=== PATIENT | female | born 1975 | race Caucasian/White ===

== ENCOUNTER 2018-05-05 18:35 | Emergency (ER) | payer OTHER, SELFPAY ==
[2018-05-05 18:41] VITALS: BP 136/92; PULSE 71; RESP 16; TEMP 36.6; O2SAT 100; BMI 24.3
--- NOTE | 2018-05-05 18:50 | DI.RAD.S_ITS ---
PROCEDURE: XR ANKLE LT MIN 3V INDICATIONS: swelling in ankle with pain TECHNIQUE: 3 views of the ankle were acquired. COMPARISON: None. FINDINGS: Bones: No fractures or dislocations. Ankle mortise is normally aligned. No suspicious bony lesions. Soft tissues: Large tibiotalar joint effusion noted. Achilles tendon appears normal. Soft tissue swelling is noted and ligamentous injury cannot be excluded. IMPRESSION: No fracture. No osseous lesion. If there are persistent symptoms or clinical suspicion for pathology, then repeat radiographs or advanced imaging (CT, MRI or bone scan) should be considered for further evaluation. Dictated by: Alisia Lopez MD, PhD on 05/05/2018 at 19:07 Approved by: Alisia Lopez MD, PhD on 05/05/2018 at 19:08
--- NOTE | 2018-05-05 19:19 | ED.LOWEXIN ---
HPI - Extremity Injury (Lower) <Natalie Milian PA-C - Last Filed: 05/05/18 21:14> General Chief Complaint: Extremity Injury, Lower Stated Complaint: LT ANKLE INJURY Time Seen by Provider: 05/05/18 18:51 Source: patient Limitations: no limitations History of Present Illness HPI Narrative: This 42-year-old female was carrying a box down stairs when she missed the last step and tripped, inverting her left ankle. She states that she felt a snapping or cracking sensation and this has been painful since. She states after a little bit, she was able to get up and hobble on this for about 15 min, then unable to bear weight as it started swelling. She states this hurts all around the ankle, more on the outside. She denies any head contusion, LOC, or any other injury such as pain in her knee or foot. She denies any possibility of . Review of Systems <Natalie Milian PA-C - Last Filed: 05/05/18 21:14> Review of Systems All systems reviewed & are unremarkable except as noted in HPI and below PFSH <Natalie Milian PA-C - Last Filed: 05/05/18 21:14> Comment: no street drugs, occasional ETOH Exam <Natalie Milian PA-C - Last Filed: 05/05/18 21:14> Narrative Exam Narrative: GENERAL APPEARANCE: Patient sitting comfortably, in no distress. LUNGS: Clear to auscultation bilaterally. HEART: Rate and rhythm regular without murmur, normal S1 and S2, no S3 or S4. MUSCULOSKELETAL: Left ankle there is moderate effusion. She is tender to palpation throughout the anterior, lateral and medial ankle. Achilles is intact by palpation, no posterior tenderness. No tenderness over the metatarsals or toes. No tenderness over the lower leg or knee. Normal range of motion of the left knee, strength 5/5 dorsi-and plantarflexion of the toes. Reduced AROM/PROM of the L. ankle throughout secondary to tenderness NEUROVASCULAR: L. foot is warm and pink with intact pulses, sensation grossly intact Initial Vital Signs Initial Vital Signs: Vital Signs Temperature 97.9 F 05/05/18 18:41 Pulse Rate 71 05/05/18 18:41 Respiratory Rate 16 05/05/18 18:41 Blood Pressure 136/92 H 05/05/18 18:41 Pulse Oximetry 100 05/05/18 18:41 <DO Kirill Bower Last Filed: 05/05/18 23:15> Initial Vital Signs Initial Vital Signs: Vital Signs Temperature 97.9 F 05/05/18 18:41 Pulse Rate 71 12 18:41 Respiratory Rate 16 05/05/18 18:41 Blood Pressure 136/92 H 05/05/18 18:41 Pulse Oximetry 100 05/05/18 18:41 Course <Natalie Milian PA-C - Last Filed: 05/05/18 21:14> Additional Information: due to degree of tenderness, difficult to assess strength and laxity. No acute findings on x-ray. Advised immobilization in walking boot or crutches, and have this reassessed with PCP next week to determine whether improving or further imaging needed. Patient is agreeable Orders Ordered: ED Orders 05/05/18 18:50 XR ankle LT min 3V Stat Discontinued Medications Ibuprofen (Advil) 800 mg PO NOW ONE Stop: 05/05/18 19:33 Last Admin: 05/05/18 19:35 Dose: 800 mg Vital Signs - 8 hr 05/05/18 18:41 Temperature 97.9 F Pulse Rate 71 Respiratory Rate 16 Blood Pressure 136/92 H Pulse Oximetry 100 <DO Kirill Bower Last Filed: 05/05/18 23:15> Orders Ordered: ED Orders 05/05/18 18:50 XR ankle LT min 3V Stat Discontinued Medications Ibuprofen (Advil) 800 mg PO NOW ONE Stop: 05/05/18 19:33 Last Admin: 05/05/18 19:35 Dose: 800 mg Vital Signs - 8 hr 05/05/18 18:41 Temperature 97.9 F Pulse Rate 71 Respiratory Rate 16 Blood Pressure 136/92 H Pulse Oximetry 100 MDM - Extremity Injury (Lower) <DARYL Phoenix Last Filed: 05/05/18 21:14> Imaging Data ankle: Radiologist's impression: [address] [address] XRay Report Signed Patient: TOMMIE MILTON [facility]#: [id number] : 1975Acct:[id number] Age/Sex: 42 / FDate of Service: 05/05/18 Loc: ED Accession Number: [id number] Procedure: XR ankle LT min 3V Ordering Provider: Vin Obregon D.O. PROCEDURE: XR ANKLE LT MIN 3V INDICATIONS: swelling in ankle with pain TECHNIQUE: 3 views of the ankle were acquired. COMPARISON: None. FINDINGS: Bones: No fractures or dislocations. Ankle mortise is normally aligned. No suspicious bony lesions. Soft tissues: Large tibiotalar joint effusion noted. Achilles tendon appears normal. Soft tissue swelling is noted and ligamentous injury cannot be excluded. IMPRESSION: No fracture. No osseous lesion. If there are persistent symptoms or clinical suspicion for pathology, then repeat radiographs or advanced imaging (CT, MRI or bone scan) should be considered for further evaluation. Dictated by: Alisia Lopez MD, PhD on 05/05/2018 at 19:07 Approved by: Alisia Lopez MD, PhD on 05/05/2018 at 19:08 Discharge Plan Departure Patient Disposition: Home Clinical Impression: Ankle sprain and strain Discharge Date/Time: 05/05/18 20:42 Interventions: ED Discharge Assessment Last Done: 05/05/18 20:41 Instructions: DI for Ankle Sprain Activity Restrictions/Additional Instructions: there does not appear to be a break or fracture on your x-ray tonight, and it is difficult to assess the degree of your sprained ligaments due to the degree of pain and swelling, which is not unusual. I would like you to use the walking boot (if you find this uncomfortable you can also use an Ramez wrap and crutches ), but please avoid putting weight on your ankle for now. Please call your PCP tomorrow and let them know you were in the emergency room today so that you can set up a follow-up in a few days to assess your progress after the acute swelling and pain are better. You may need repeat x-ray or further testing or imaging if not improving. Please continue ibuprofen 600-800 mg every 8 hr, and you can also add Tylenol as needed to help with pain and swelling. Please keep your ankle elevated and continue to use ice tonight to help with pain and swelling as well. Please return if you have any acutely worsening symptoms prior to your follow-up Referrals: Kedar Castro [Non-Staff] - <Vin Obregon DO - Last Filed: 05/05/18 23:15> Cosign ED Attending Paature Attestation: I was available for consultation during this patient's emergency department encounter
[2018-05-05] MEDS: IBUPROFEN 400 MG TABLET 800 MG PO (19:35)
== END 2018-05-05 20:42 | disposition home or self-care (01) ==
PROVIDERS: Emergency Provider Internal Medicine
DX: S93.402A Sprain of unspecified ligament of left ankle, initial encounter (principal); S96.912A Strain of unspecified muscle and tendon at ankle and foot level, left foot, initial encounter; W10.8XXA Fall (on) (from) other stairs and steps, initial encounter
CPT/HCPCS: 73610; 99282; 99283

== ENCOUNTER → 2021-06-20 11:52 | Outpatient (CLI) | payer BC, SELFPAY ==
--- NOTE | 2021-06-20 | DI.MRI.S_ITS ---
PROCEDURE: MR LUMBAR SPINE WO CON INDICATIONS: Low back pain, unspecified TECHNIQUE: Noncontrast sagittal T1 spin echo and T2 fast echo, sagittal STIR, axial T1 and T2 fast spin echo through the lumbar spine. In cases with scoliosis, additional coronal T2 fast spin echo may be performed. COMPARISON: [facility] [place], CR, XR LUMBAR SPINE 2 OR 3 VIEWS, 06/10/2021, 13:14. FINDINGS: Image quality: Excellent. Alignment and Curvature: Degenerative retrolisthesis of L2 on L3 measures 7 mm. The other vertebral bodies are normally aligned Bone Marrow: Marrow . s of normal overall signal. Discogenic signal abnormality at L2-L3. No acute vertebral body compression fractures. Spinal Cord: Conus medullaris terminates at the L1 level. Visualized cord demonstrates normal signal and size. Paraspinous Soft Tissues: No paravertebral masses. T11-T12: Imaged in sagittal plane only. Incidental note is made of a central posterior disc protrusion which indents on the cord. It likely does not resulting canal stenosis. No foraminal stenosis. T12-L1: Minimal disc bulge. No canal stenosis or foraminal stenosis. L1-L2: Mild disc bulge. No canal stenosis or foraminal stenosis. L2-L3: There is 7 mm retrolisthesis of L2 on L3 with associated disc bulge. Canal stenosis is underestimated by choice of axial scan plane. It is likely [id number]. There is a diffuse broad-based left posterior lateral disc protrusion which contributes to severe left foraminal stenosis and left L2 nerve root impingement in the foramen. L3-L4: Disc bulge. Facet hypertrophy. Mild canal stenosis. [id number] bilateral foraminal stenosis. L4-L5: Posterior annulus tear. Moderately large diffuse disc bulge. Facet and ligament hypertrophy. Moderate to severe canal stenosis. Moderate right foraminal narrowing with flattening deformity on the exiting right L4 nerve root. Mild to moderate left foraminal narrowing. L5-S1: Posterior annulus tear plus disc bulge. Facet and ligament hypertrophy. Moderate to severe canal stenosis. Moderate bilateral foraminal stenosis with mild flattening deformity on the exiting bilateral L5 nerve roots. IMPRESSION: 1. Diffuse degenerative change. 2. Canal stenosis is mild to moderate at L2-L3, mild at L3-L4, moderate to severe at L4-L5, and moderate to severe at L5-S1. 3. At L2-L3, there is a diffuse broad-based left posterior lateral disc protrusion contributing to severe left foraminal stenosis and left L2 nerve root impingement. 4. Multilevel foraminal narrowing as described above. Dictated by: Rene Richardson M.D. on 06/20/2021 at 12:45 Approved by: Rene Richardson M.D. on 06/20/2021 at 12:53
== END ==
PROVIDERS: PCP Family Medicine; Referring Provider Orthopaedic Surgery Orthopaedic Surgery of the Spine; Visit Provider Orthopaedic Surgery Orthopaedic Surgery of the Spine
DX: M51.26 Other intervertebral disc displacement, lumbar region (principal); M47.816 Spondylosis without myelopathy or radiculopathy, lumbar region; M47.817 Spondylosis without myelopathy or radiculopathy, lumbosacral region; M48.061 Spinal stenosis, lumbar region without neurogenic claudication; M48.07 Spinal stenosis, lumbosacral region
CPT/HCPCS: 72148

== ENCOUNTER → 2021-09-12 12:22 | Outpatient (CLI) | payer BC, SELFPAY ==
[2021-09-12 13:00] LABS: Add Manual Diff / Slide Review NO; Basophils Absolute Auto 0 /uL (0-100); Basophils Percent Auto 0.5 % (0-2); Eosinophils Absolute Auto 200 /uL (0-450); Eosinophils Percent Auto 1.7 % (2-4); Hemoglobin 13.3 g/dL (12.0-16.0); Lymphocytes Absolute Auto 2900 /uL (1100-4500); Lymphocytes Percent Auto 30.8 % (25-40); Mean Corpuscular HGB Conc 34.1 % (30-36); Mean Corpuscular Hemoglobin 31.8 PG (26-34); Mean Corpuscular Volume 93.3 fL (80-100); Monocytes Absolute Auto 400 /uL (0-900); Monocytes Percent Auto 4.8 % (3-14); Neutrophils Absolute Auto 5800 /uL (1500-7000); Neutrophils Percent Auto 62.2 % (50-75); Platelet Count 317 X10^3/uL (150-400); Red Blood Cell Count 4.18 X10^6/uL (4.0-5.2); Red Cell Distribution Width 12.7 % (11.6-14.8); White Blood Cell Count 9.4 X10^3/uL (4.5-11.0)
[2021-09-12 13:07] LABS: Prothrombin Time 11.4 SECONDS (10.1-12.7)
[2021-09-12 13:09] LABS: PTT Partial Thromboplastin Tim 34 SECONDS (26.4-36.2)
[2021-09-12 13:17] LABS: BUN Creatinine Ratio 15.5 (6-22); Blood Urea Nitrogen 11 mg/dL (7-17); Calcium 8.9 mg/dL (8.4-10.2); Carbon Dioxide 25 mmol/L (22-32); Chloride 105 mmol/L (98-107); Estimated Glomerular Filt Rate > 60 mL/min (>60); Glucose 84 mg/dL (70-100); HEMOLYSIS < 15 (0-50); Potassium 3.9 mmol/L (3.4-5.1); Sodium 137 mmol/L (137-145)
== END ==
PROVIDERS: PCP Family Medicine; Referring Provider Orthopaedic Surgery Orthopaedic Surgery of the Spine; Visit Provider Orthopaedic Surgery Orthopaedic Surgery of the Spine
DX: Z01.818 Encounter for other preprocedural examination (principal); Z01.812 Encounter for preprocedural laboratory examination; Z51.81 Encounter for therapeutic drug level monitoring
CPT/HCPCS: 36415; 80048; 85025; 85610; 85730; 93005

== ENCOUNTER → 2021-09-22 10:53 | Outpatient (CLI) | payer BC, SELFPAY ==
[2021-09-22 13:28] LABS: COVID19 -Nasal RAPID Negative (Negative)
== END ==
PROVIDERS: PCP Family Medicine; Visit Provider Family Medicine Sleep Medicine
DX: Z20.822 Contact with and (suspected) exposure to COVID-19 (principal)
CPT/HCPCS: 87635; C9803

== ENCOUNTER 2021-09-24 06:13 | Day surgery (SDC) | payer BC, SELFPAY ==
[2021-09-16 13:53] VITALS: BMI 26.7
[2021-09-24] VITALS (12 sets, daily range): BP systolic 113–145; BP diastolic 63–82; PULSE 55–97; RESP 8–18; TEMP 36.1–37.3; O2SAT 95–100; BMI 26.7
--- NOTE | 2021-09-24 | DI.RAD.S_ITS ---
PROCEDURE: XR LUMBAR SPINE 2-3V INDICATIONS: TLIF L2-3 TECHNIQUE: 2 intraoperative views of the lumbar spine were acquired. COMPARISON: [facility] [place], RF, LUMBAR SPINE INTERIAMINAR, 07/22/2021, 17:12. [facility] DIANE [place]aran[place], XR LUMBAR SPINE 2 OR 3 VIEWS, 06/10/2021, 13:14. FINDINGS: Pedicle screw fixation at L2-L3 with intervertebral body spacer. Vertebral body osteophytes. IMPRESSION: Intraoperative guidance provided. Hardware projects in the expected location. Dictated by: Mani Wheeler M.D. on 09/24/2021 at 11:09 Approved by: Mani Wheeler M.D. on 09/24/2021 at 11:10
[2021-09-24] MEDS: LACTATED RINGERS 1,000 ML 42 ML IV ×2 (07:14→11:17)
--- NOTE | 2021-09-24 07:38 | PM.PREOP ---
Pre-operative Note COVID-19 COVID-19 status: Negative Result date/Date tested (Pos, Neg/Pending): 09/23/21 Criteria for continued procedure: Expected advancement of disease process, Possibility delay results in more complex future surgery or treatment, Increased loss of function, Continuing or worsening of significant or severe pain, Deterioration of the patient's condition or overall health and Delay expected to result in less-positive ultimate med/surg outcome Interval Note History & Physical reviewed/Exam performed by Physician: Yes Changes to H&P: No
[2021-09-24] MEDS: CEFAZOLIN 2 GM/20 ML SYRINGE IV ×3 (08:07→23:52)
[2021-09-24] MEDS: SCOPOLAMINE 1 PATCH TOP (08:40)
--- NOTE | 2021-09-24 08:49 | SUR.OPER ---
Prone on spine table, head in foam head support, padded chest and pelvic supports, gel pad at knees, lower legs supported by pillows; nipples, genitalia and toes free of pressure, arms secured on foam padded arm boards at <90 degrees abduction. Tape over blanket at thigh secured to table. Gel pad placed between heels.
[2021-09-24] MEDS: BUPIVACAINE 0.25% (PF) 30 ML, EPINEPHrine 0.3 MG INJ (09:45)
[2021-09-24] MEDS: BUPIVACAINE LIPOSOME 266 MG/20 ML VIAL INJ (10:43)
[2021-09-24] MEDS: HYDROMORPHONE 2 MG INJ IV ×2 (11:09→11:25)
[2021-09-24] MEDS: hydrOXYzine 50 MG/ML INJ IM (11:10)
[2021-09-24] MEDS: OXYCODONE/ACETAMINOPHEN 5/325 TABLET 1 TAB PO ×2 (11:10→11:41)
--- NOTE | 2021-09-24 11:11 | P.OP_ITS ---
Operative Date/Time/Diagnoses Date of procedure: 09/24/21 Time of procedure: 07:45 Pre-op diagnosis: 1. L2-3 spondylolisthesis 2. L2-3 spinal stenosis with radiculopathy Post-op diagnosis: same Procedure & Clinicians Procedure: 1. L2-3 Postero-lateral and posterior interbody fusion 2. L2-3 interbody cage placement. 3. L2-3 decompressive laminectomy with bilateral facetecomies 4. L2-3 Posterior non-segmental instrumentation 5. Prosperity of bone marrow from iliac crest 6. Utilization of microsurgical technique and operating microscope Same procedure as scheduled: Yes Indications: Patient has been having chronic back pain and worsening lumbar radiculopathy. Patient failed multiple conservative management with worsening pain weakness and numbness in her lower extremity. Patient has been having difficulty performing activity of daily living. After discussing risks benefits of treatment options, patient elected proceed with surgery. Surgeon: Justyna Kirby General Maintenance Engineer: Meron Reynolds Click Yes if Unassisted: No Anesthesia Type: General Operative Notes Closure Type: primary Specimen(s): none sent Prosthetic devices, grafts, tissues, transplants, or devices: Globus Revolve screws, Rise cage Estimated Blood Loss (mL): 50 Blood products transfused: none Procedure in detail: Patient was seen in the preoperative area. Risks and benefits of the surgery was discussed with the patient. Informed consent was obtained from the patient and placed in the chart. Surgical site was marked. Patient was taken to the operative room. General anesthesia was administered. Prophylactic antibiotic was given to the patient less than 30 min before the incision was made. Patient was placed into a prone position on the Bishop table. Patient's back was then prepped and draped in the sterile fashion. Time-out was performed at this time. Using AP and lateral C-arm imaging the interval between L2-3 was identified and marked on patient's back. A 2 inch incision 2 in from midline was made on the right side first. The fascia was incised in line with skin incision. Globus MARS retractors was placed inside the incision and docked onto the L2 lamina. Using microsurgical technique and operating microscope, a L2 laminectomy and L2- 3 facetectomy was performed using a Kerrison rongeur. The disc space at L2-3 was identified. And a total diskectomy was performed at L2-3 level. The endplates were decorticated using a rasp and shaver. The total diskectomy and decortication was performed at L2-3 level in order to to accomplish a L2-3 fusion. The local bone from the laminectomy and facetectomy was saved for local bone grafting. After the total diskectomy and decortication was completed, Trifecta bone graft material was combined with local bone that was harvested earlier. At this time, a separate skin is incision was made over the iliac crest. A Jamshidi needle was inserted into the iliac crest through a separate skin incision. 5 cc of bone marrow aspiration was obtained through the separate skin incision using a Jamshidi needle from the iliac crest. The bone marrow aspiration was combined with local bone and the Trifecta bone grafting material. The bone grafting material was placed into the L2-3 interbody space along with a expandable cage. The cage was expanded to its maximum height using the torque limiting screwdriver. At this time a mirror image incision was made on the left side. The fascia was incised in line with the skin incision. Globus MARS retractor was inserted and docked onto the L2-3 posterolateral gutter. Using the power drill, posterior- lateral decortication was performed at L2-3 level until bleeding cortical bone was identified. The remaining bone grafting material was placed into the L2-3 posterior lateral gutter he order to accomplish posterolateral fusion at the L2- 3 level. Using the double C-arm technique, pedicle screws were placed into the L2-3 pedicles bilaterally. This was done by placing the Jamshidi needle into the pedicles, then placing the guidewires over the Jamshidi needle, and finally placing the cannulated screws over the guidewires bilaterally. After the pedicle screws were placed, 2 titanium rods was locked into the heads of the pedicle screws using locking caps and torque limiting screwdriver. After all the hardware was placed, and confirmed with AP and lateral C-arm imaging, the wound was then irrigated with sterile normal saline and packed with Ray-Yelena gauze for 3 min to accomplish hemostasis. After the gauze was removed the deep fascia was closed with #1 Vicryl suture. The subcutaneous layer was closed with 2-0 Vicryl. The skin was closed with skin eliza. Patient tolerated the procedure well. There were no complications. Complications: none Post-operative Condition: stable Disposition: PACU Plan for aftercare: Admit to inpatient hospital
[2021-09-24] MEDS: SODIUM CHLORIDE 0.9% 1,000 ML 100 ML IV ×2 (12:31→23:56)
[2021-09-24] MEDS: OXYCODONE IR 5 MG TABLET 10 MG PO ×3 (14:43→23:52)
--- NOTE | 2021-09-24 15:40 | PT.IIE ---
Current Diagnoses Spondylolisthesis, lumbar region (09/24/21) Spinal stenosis, lumbosacral region (09/24/21) Surgery Performed Operation Date: 09/24/21 07:45 Actual Procedures p L2-3 TLIF - Justyna Kirby MD Medical History (Last Updated 09/16/21 @ 14:47 by Xochilt Monson RN) ADHD Anesthesia complication Anxiety Asthma COVID-19 virus infection (08/01/21) Easy bruisability Hypothyroidism (acquired) RLS (restless legs syndrome) Sciatica Seasonal allergies Spinal stenosis Physical Therapy Inpatient Evaluation/Re-Eval M1 PT/OT-IP Prior Functional Status Start: 09/24/21 17:41 Freq: NEEDED Status: Active Protocol: Document 09/24/21 15:40 AB (Rec: 09/24/21 17:51 AB [id number]) Medical Review Prior Functional Status Medical History Reviewed Yes Communication able to make needs known Mobility and Gait pt stated that she is independent with all mobilities and ambulation without AD Social History Household Members spouse,children Living Arrangements House Number of Floors (Floors) Two Floors Number of Stairs To Enter/Railing? 6 steps with wide rails to enter the house from the front ; not steps to enter from the garage 12 steps with R rail ascending to bedroom level Home Environment Standard Height Toilet,Walk in Shower,Built-In Shower Seat Home Equipment Front Wheel Walker Additional Social History Comment pt stated that she has a high bed M2 PT-IP Current Condition Start: 09/24/21 17:41 Freq: NEEDED Status: Active Protocol: Document 09/24/21 15:40 AB (Rec: 09/24/21 17:51 AB [email or web address]) Physical Therapy Current Condition Current Condition Evaluation Date 09/24/21 Treatment Diagnosis s/p L2-3 TLIF; difficulty in walking Onset Date 09/24/21 M3 PT-IP Subjective Start: 09/24/21 17:41 Freq: NEEDED Status: Active Protocol: Document 09/24/21 15:40 AB (Rec: 09/24/21 17:51 AB [email or web address]) Subjective Physical Therapy Visit Type Type Initial Evaluation Visit Start Time 15:40 Visit Stop Time 16:20 Total Visit Minutes 40 Number of ELECTRONIC IMAGER Visits 0 Physical Therapy Visit Comments Patient Comments pt is agreeable to do PT Therapy Pain Assessment Pain When Pain Assessed At Rest Pain Present Pain Present Pain Reported Location lower back Intensity 4 Scale Used Numeric (0 - 10) M4 PT-IP Mobility and Gait Start: 09/24/21 17:41 Freq: NEEDED Status: Active Protocol: Document 09/24/21 15:40 AB (Rec: 09/24/21 17:51 AB [email or web address]) PT-Bed Mobility Assessment Rolling Type of Rolling Log Rolling Level of Assist Standby Assistance Supine to Sit Supine to Sit Standby Assistance Sit to Supine Sit to Supine Standby Assistance PT-Transfer Assessment Sit to and From Stand Sit to and from Stand Minimal Assistance,1 Person Assistance,Use of Upper Extremities Equipment Transfer Assistive Device Gait Belt,Front Wheeled Walker Orthotic/Prosthetic Devices or Brace: No Transfers Transfer Destination Toilet Transfer Technique ambulated Transfer Ability Level of Assist Minimal Assistance,1 Person Assistance Comments Mobility Comments nurse informed that pt wants to use the toilet. educated pt on back precautions and log roll bed mobility. completed supine to sit SBA and max cues . able to sit on EOB SBA. BP 124/67. completed sit to stand min A and ambulated to the toilet ~ 10 ft using FWW min A and cues. ambulated out of the toilet using fWW and back to bed using FWW min A. pt is feeling sleepy and wants to rest. completed sit to supine SBA and cues for log roll. positioned pt in bed. call light and table placed within reach. Gait Assessment Gait Gait Assistance Required: Minimum Assistance,1 Person Assist Distance (Feet) 10 Able to Maintain Weight Bearing Status Yes During Gait Assistive Devices Assistive Device Gait Belt,Front Wheeled Walker Orthotic/Prosthetic Devices or Brace: No Gait Deviations General Gait Pattern Decreased Stride Length, Decreased Feet Clearance,Step- to Gait Factors Limiting Gait Function Factors Limiting Gait Function Decreased Activity Tolerance, Decreased Strength,Difficulty Following Directions,Limited Range of Motion,Pain,Poor Balance,Poor Safety Awareness PT-Balance Assessment Sitting Balance and Reactions Static Sitting Balance Ability Good Dynamic Sitting Balance Ability Good Standing Balance and Reactions Static Standing Balance Ability Fair Dynamic Standing Balance Ability Fair Device Used FWW M5 PT-IP Objective Assessments Start: 09/24/21 17:41 Freq: NEEDED Status: Active Protocol: Document 09/24/21 15:40 AB (Rec: 09/24/21 17:51 AB [email or web address]) Orientation Orientation/Cognition Level of Alertness Lethargic Orientation Name,Place,Situation Language Function Ability No Deficits Noted Safety Awareness Decreased Safety Awareness Memory Description No Deficits Noted Gross Range of Motion Lower Extremity ROM Assessment Within Functional Limits Strength Lower Extremity Strength Assessment Within Functional Limits Coordination Assessment Gross Coordination Gross Coordination WNL Sensation Assessment Sensation Gross Sensation WNL Muscle Tone Muscle Tone WNL Yes M6 PT-IP Treatment Start: 09/24/21 17:41 Freq: NEEDED Status: Active Protocol: Document 09/24/21 15:40 AB (Rec: 09/24/21 17:51 AB [email or web address]) Physical Therapy Treatment Education Education Provided Precautions,Weight Bearing Status,Post-Op Packet,Safety M7 PT-IP Assessment and Plan Start: 09/24/21 17:41 Freq: NEEDED Status: Active Protocol: Document 09/24/21 15:40 AB (Rec: 09/24/21 17:51 AB [email or web address]) PT Summary Assessment and Plan Potential Rehabilitation Potential Good Status of Condition at Evaluation Evolving Summary Impairments Pain,ROM,Strength,Balance, Coordination,Sensation,Tone, Cognition,Bed Mobility, Transfers,Gait,Activity Tolerance Assessment Summary pt requiring min A with mobility. pt s/p L2-3 TLIF and just had surgery this morning. pt will likely progress during hospital stay. caregiver training set up at ~ 930 am tomorrow. will continue to assess progress. Goals Bed Mobility Goal Independent Transfer Goal Independent,Front Wheeled Walker Gait Goal Independent,Front Wheel Walker Gait Distance 200 Other Goals up/down 12 steps R rail ascending SBA Days to Meet Goals 5 Frequency of Treatment Frequency Of Treatment Twice a Day Treatment Plan Physical Therapy Treatment Plan Bed Mobility Training,Transfer Training,Gait Training, Therapeutic Exercise,Balance Retraining,Post Op Education, Discharge Planning,Hot or Cold Pack,Neuromuscular Re-ed, Coordination Retraining,Manual Therapy Precautions Lumbar Precautions Log Roll,No Twisting,Limit Bending,Lifting Restriction of 10 lbs,Gait Belt above Incisional Area Recommendations To Nursing Amount of Assist Needed 1 Person Assist Discharge Recommendations PT Discharge Recommendations Home with Assistance Transportation Needs at Discharge Private Vehicle
[2021-09-24] MEDS: ACETAMINOPHEN 325 MG TABLET 650 MG PO (19:31)
[2021-09-24] MEDS: hydrOXYzine pamoate 25 MG CAPSULE PO (19:32)
[2021-09-24] MEDS: SENNOSIDES 8.6 MG TABLET 17.2 MG PO (21:43)
[2021-09-24] MEDS: buPROPion SR 100 MG TAB 150 MG PO (21:43)
[2021-09-24] MEDS: DOCUSATE 100 MG CAPSULE PO (21:45)
[2021-09-24] MEDS: DULOXETINE 30 MG CAPSULE PO (21:46)
[2021-09-24] MEDS: MELATONIN 3 MG TABLET 6 MG PO (21:47)
[2021-09-24] MEDS: HYDROMORPHONE 0.5 MG INJ IV (23:52)
[2021-09-25 00:01] VITALS: BP 126/75; PULSE 59; RESP 18; TEMP 36.3; O2SAT 97
[2021-09-25 04:00] VITALS: BP 113/68; PULSE 62; RESP 18; TEMP 36.7; O2SAT 96
[2021-09-25] MEDS: HYDROMORPHONE 0.5 MG INJ IV ×2 (04:11→10:43)
[2021-09-25] MEDS: ACETAMINOPHEN 325 MG TABLET 650 MG PO (04:12)
--- NOTE | 2021-09-25 05:47 | PC.NURSE ---
did really well thru the NOC. 12/07 pain controlled w/ oxycodone and IV dilauded. denies any numbness or tingling to extremities. moves about her bed easily, uses FWW to ambulate to/from bathroom. dressing to lower back incision is CDI. IV SL this AM as she is taking significant fluids PO. bed alarm is on, call light w/in reach.
[2021-09-25] MEDS: OXYCODONE IR 5 MG TABLET 10 MG PO (07:44)
[2021-09-25] MEDS: hydrOXYzine pamoate 25 MG CAPSULE PO (07:44)
[2021-09-25 07:50] VITALS: BP 118/69; PULSE 63; TEMP 36.7
--- NOTE | 2021-09-25 07:52 | P.DS_ITS ---
History of Present Illness History of Present Illness Date Patient Seen: 09/25/21 Time Patient Seen: 07:53 Chief complaint: TLIF *OPB* Narrative: Operative Date/Time/Diagnoses Date of procedure: 09/24/21 Time of procedure: 07:45 Pre-op diagnosis: 1. L2-3 spondylolisthesis 2. L2-3 spinal stenosis with radiculopathy Post-op diagnosis: same Procedure & Clinicians Procedure: 1. L2-3 Postero-lateral and posterior interbody fusion 2. L2-3 interbody cage placement. 3. L2-3 decompressive laminectomy with bilateral facetecomies 4. L2-3 Posterior non-segmental instrumentation 5. [place] of bone marrow from iliac crest 6. Utilization of microsurgical technique and operating microscope Same procedure as scheduled: Yes Indications: Patient has been having chronic back pain and worsening lumbar radiculopathy. Patient failed multiple conservative management with worsening pain weakness and numbness in her lower extremity.? Patient has been having difficulty performing activity of daily living.? After discussing risks benefits of treatment options, patient elected proceed with surgery. Surgeon: Justyna Kirby Absorption And Adsorption Engineer: Meron Reynolds Click Yes if Unassisted: No Anesthesia Type: General Operative Notes Closure Type: primary Specimen(s): none sent Prosthetic devices, grafts, tissues, transplants, or devices: Globus Revolve screws, Rise cage Estimated Blood Loss (mL): 50 Blood products transfused: none Discharge Providers Provider Discharge Date: 09/25/21 Primary care physician: Martir Gomez DO Consults: 09/24/21 11:58 Consult to Occupational Therapy Evaluate & Treat Comment: Physician Instructions: Evaluate and treat Consult to Physical Therapy Evaluate & Treat Comment: Physician Instructions: Evaluate and Treat Discharge provider: Aminta Alfonso PA-C Summary Hospital Course Discharge Diagnosis: s/p lumbar fusion Hospital Course: Ms Argueta's hospital course was unremarkable. On POD# 1, she was sitting up in bed, complains of spasm-like back pain, denies leg pain. Has worked with PT. Eating and voiding without difficulty. Would like to go home today; has and mother for assistance. Exam Vital Signs (past 8 hours): - 09/25/21 00:01 09/25/21 04:00 09/25/21 07:50 Temperature 97.3 F L 98.0 F 98.0 F Pulse Rate 59 L 62 63 Respiratory Rate 18 18 Blood Pressure 126/75 113/68 118/69 Pulse Oximetry 97 96 Oxygen Delivery Method Room Air Oxygen Flow Rate 0 Narrative Exam Narrative: 5/5 strength in hip flexors, quadriceps, hamstrings, DF, PF, EHL bilaterally. Sensation to light touch intact in BLE. Calves soft, compressible, and nontender without palpable cords or masses. Dressing CDI. Const General: cooperative and healthy appearing [facility] Medical History (Updated 09/16/21 @ 14:47 by Xochilt Monson RN) ADHD Anesthesia complication Anxiety Asthma COVID-19 virus infection (08/01/21) Easy bruisability Hypothyroidism (acquired) RLS (restless legs syndrome) Sciatica Seasonal allergies Spinal stenosis Surgical History (Updated 09/16/21 @ 14:14 by Xochilt Monson RN) History of 2 sections History of bilateral carpal tunnel release Hx of arthroscopy of right knee Hx of shoulder surgery Social History household members: spouse and children Smoking Status: Never smoker alcohol intake: former Discharge Assessment & Plan Assessment and Plan Assessment: POD# 1 s/p L2-3 transforaminal lumbar interbody fusion w/ posterolateral fusion. Plan of Treatment: Discharge home, multimodal pain control. Discharge Plan Discharge Plan Patient Disposition: Home Discharge orders & Medications Discharge Orders: Discharge (Order); Ordered 09/25/21 Ordered By: Aminta Alfonso Prescriptions: New docusate sodium 100 mg Capsule 100 mg PO BID PRN (Reason: constipation) Qty: 60 2RF hydroxyzine pamoate 25 mg Capsule 25 mg PO Q4HR PRN (Reason: muscle spasm) Qty: 120 1RF oxycodone 5 mg Tablet 5 mg PO Q3HR PRN (Reason: Pain, Severe (7-10)) Qty: 60 0RF Continued bupropion HCl [Wellbutrin SR] 100 mg tablet sustained-release 12 hr 150 mg PO BEDTIME 0RF levothyroxine 137 mcg Tablet 137 mcg PO DAILY 0RF cetirizine [Zyrtec] 10 mg Tablet 10 mg PO BEDTIME 0RF ferrous sulfate 325 mg (65 mg iron) Tablet 325 mg PO DAILY 0RF acetaminophen 500 mg Capsule 1,500 mg PO BID 0RF loratadine [Claritin] 10 mg Tablet 10 mg PO QAM 0RF duloxetine 30 mg Capsule,Delayed Release(Dr/Ec) 30 mg PO BEDTIME 0RF potassium gluconate 595 mg (99 mg) Tablet 595 mg PO DAILY 0RF melatonin 5 mg Tablet 5 mg PO BEDTIME 0RF magnesium oxide 200 mg magnesium Tablet 200 mg PO DAILY 0RF fluticasone propionate 50 mcg/actuation [place],Suspension 1 spray INTRANASAL DAILY 0RF Rx Instructions: administer into each nostril Discontinued ibuprofen 200 mg Tablet 800 mg PO BID 0RF Follow up/Referrals: Justyna Kirby MD [Physician] - As previously scheduled (Follow up w/ Dr Kirby on 10/07/2021 @ 3:00 at [facility] [place] [facility]) Martir Gomez DO [Primary Care Provider] - Diet/Activity/Treatments Diet: Diet as Tolerated Activity: No deep bending (more than 90 degrees) or twisting at the waist. No lifting > 20 #. Skin/Wound/Dressing Care Report to your healthcare provider any signs of infection, such as:: chills, fever, night sweats, unusual drainage and unusual redness Dressing: May shower; keep dressing as dry as possible. May remove and replace if it becomes saturated. No bathing or otherwise soaking incisions. Do not apply any creams, lotions, or ointments to incisions. Visit Report/Discharge Packet Instructions: How to Prevent Falls, DI for Prescription Opioid Use, DI for Transforaminal Lumbar Interbody Fusion Stand Alone Forms: Surgery Discharge Discharge Data Primary Care Provider: Martir Gomez Attending Provider: Justyna Kirby
[2021-09-25 08:28] LABS: Pregnancy Test Serum,Qual Negative (Negative)
[2021-09-25] MEDS: DOCUSATE 100 MG CAPSULE PO (09:12)
[2021-09-25] MEDS: FERROUS SULFATE 325 MG TABLET PO (09:12)
[2021-09-25] MEDS: FLUTICASONE 120 SPRAY/16 GM SPRAY.SUSP NASAL (09:12)
[2021-09-25] MEDS: LORATADINE 10 MG TABLET PO (09:12)
[2021-09-25] MEDS: LEVOTHYROXINE 137 MCG TABLET PO (09:13)
[2021-09-25] MEDS: MAGNESIUM OXIDE 400 MG TABLET 200 MG PO (09:13)
--- NOTE | 2021-09-25 09:13 | OT.IP.EVAL ---
Current Diagnoses Spondylolisthesis, lumbar region (09/24/21) Spinal stenosis, lumbosacral region (09/24/21) Surgery Performed Operation Date: 09/24/21 07:45 Actual Procedures p L2-3 TLIF - Justyna Kirby MD Past Medical History (Last Updated 09/16/21 @ 14:47 by Xochilt Monson, RN) ADHD Anesthesia complication Anxiety Asthma COVID-19 virus infection (08/01/21) Easy bruisability History of 2 sections History of bilateral carpal tunnel release Hx of arthroscopy of right knee Hx of shoulder surgery Hypothyroidism (acquired) RLS (restless legs syndrome) Sciatica Seasonal allergies Spinal stenosis Surgical History (Last Updated 09/16/21 @ 14:14 by Xochilt Monson, RN) History of 2 sections History of bilateral carpal tunnel release Hx of arthroscopy of right knee Hx of shoulder surgery Occupational Therapy Inpatient Evaluation/Re-Eval M1 PT/OT-IP Prior Functional Status Start: 09/24/21 17:41 Freq: NEEDED Status: Active Protocol: Document 09/25/21 09:16 [facility] (Rec: 09/25/21 09:27 [facility] [id number]) Medical Review Prior Functional Status Medical History Reviewed Yes Communication able to make needs known Mobility and Gait pt stated that she is independent with all mobilities and ambulation without AD Activities of Daily Living and IADL's Pt states had pain during ADL' s and IADL needs. Social History Household Members spouse,children Living Arrangements House Number of Floors (Floors) Two Floors Number of Stairs To Enter/Railing? 6 steps with wide rails to enter the house from the front ; not steps to enter from the garage 12 steps with R rail ascending to bedroom level Home Environment Standard Height Toilet,Walk in Shower,Built-In Shower Seat Home Equipment Front Wheel Walker Additional Social History Comment pt stated that she has a high bed M2 OT-IP Current Condition Start: 09/25/21 09:16 Freq: Status: Active Protocol: Document 09/25/21 09:16 [facility] (Rec: 09/25/21 09:27 [facility] [id number]) Occupational Therapy Current Condition Current Condition Evaluation Date 09/25/21 Treatment Diagnosis S/p L2-3 TLIF Diagnosis Onset Date 09/24/21 M3 OT- IP Subjective and Pain Start: 09/25/21 09:16 Freq: Status: Active Protocol: Document 09/25/21 09:16 [facility] (Rec: 09/25/21 09:27 [facility] [id number]) OT- Subjective Occupational Therapy Visit Type Type Initial Evaluation Visit Start Time 08:50 Visit Stop Time 09:13 Total Visit Minutes 23 Occupational Therapy Visit Comments Patient Comments Pt agreed to get up and get dressed however not wanting to shower. Patient/Caregiver Goals TO go home. OT Pain Assessment Pain When Pain Assessed At Rest Pain Present Pain Present Denied Pain M4 OT- IP ADL's Start: 09/25/21 09:16 Freq: Status: Active Protocol: Document 09/25/21 09:16 [facility] (Rec: 09/25/21 09:27 [facility] [id number]) OT [id number] General Evaluation Self-Feeding Ability Independent OT ADL-Grooming General Evaluation Grooming Ability Independent OT ADL-Oral Care General Eval Oral Care Ability Independent Comments Oral Care Comments Pt needing initial vc to hinge at her hips to best follow her back precautions. OT ADL-Dressing General Eval Upper Body Dressing Ability Independent Lower Body Dressing Ability Standby Assistance Comments OT Dressing Comments VC to sit to get dressed and pt able to reach down with her clothing appropriately to follow her back precautions. Pt states her and mom will be there to assist. OT ADL-Toileting Comments OT Toileting Comments Pt agreed that it will be best to stand and wipe at this time to best follow her back precautions. Suggested to have wet wipe to increase ease and wear pads at night to prevent from hurrying to the bathroom . OT ADL-Bathing Comments OT Bathing Comments Pt wanting to shower at home. Pt states the shower is big enough that her will be able to go in and assist her. Pt feels that the built in seat will be adequate enough to use and does not feel she will needs a shower chair. M5 OT- IP IADL's Start: 09/25/21 09:16 Freq: Status: Active Protocol: Document 09/25/21 09:16 [facility] (Rec: 09/25/21 09:27 [facility] [id number]) OT-Instrumental Activities of Daily Living Home Safety Awareness Awareness of Need for Assistance at Home Good Awareness Ability to Problem Solve Emergency Able to Problem Solve Situations Home Safety Comments Pt and mother to assist with all needs as needed. M6 OT- IP Functional Cognition Start: 09/25/21 09:16 Freq: Status: Active Protocol: Document 09/25/21 09:16 [facility] (Rec: 09/25/21 09:27 [facility] [id number]) Cognitive Factors Limiting Selfcare Function Cognitive Ability Level of Alertness Alert Patient Orientation Name,Age,Birthday,Month,Date, Year,Day of Week,Place, Situation Attention Span Ability Capable of Focused Attention, Capable of Sustained Attention Ability to Follow Commands Able to Follow One Step Commands Memory Description No Deficits Noted Safety Awareness Decreased Ability to Apply Precautions Cognitive Comments Cognitive Assessment Comments Pt mainly just needing reminders to apply her back precautions for ADl and mobility needs. OT- Vision and Hearing OT- Hearing Assessment OT- Hearing Assessment WFL OT- Vision Assessment Visual Acuity WFL M7 OT- IP Mobility and Balance Start: 09/25/21 09:16 Freq: Status: Active Protocol: Document 09/25/21 09:16 [facility] (Rec: 09/25/21 09:27 [facility] [id number]) OT- Bed Mobility Assessment Supine to Sit Supine to Sit Assist Standby Assistance Sit to Supine Sit to Supine Assist Standby Assistance OT-Transfer Assessment Sit to and From Stand Sit to and from Stand Standby Assistance Transfers Transfer Ability Standby Assistance Technique Transfer Destination Bed Transfer Technique Stand Step Pivot Devices Transfer Assistive Devices Gait Belt,Front Wheeled Walker Comments Mobility Comments VC for all mobility needs. OT- Balance Assessment Sitting Balance and Reactions Static Sitting Balance Ability Normal Dynamic Sitting Balance Ability Good Standing Balance and Reactions Static Standing Balance Ability Good M8 OT- IP Objective Assessments Start: 09/25/21 09:16 Freq: Status: Active Protocol: Document 09/25/21 09:16 [facility] (Rec: 09/25/21 09:27 [facility] [id number]) OT-Muscle Tone Assessment Muscle Tone WNL Yes M9 OT- IP Assessment and Plan Start: 09/25/21 09:16 Freq: Status: Active Protocol: Document 09/25/21 09:16 [facility] (Rec: 09/25/21 09:27 [facility] [id number]) OT Summary Assessment and Plan Potential Rehabilitation Potential Excellent Analytic Complexity at Evaluation Low Summary OT Impairments Functional Mobility,Bathing Goals Dressing Goal Independent Toileting Goal Independent Bathing Goal Independent Toilet Transfer Goal Independent Shower Transfer Goal Independent Days to Meet Goals 3 Frequency of Treatment Frequency Of Treatment Once a Day Treatment Plan OT Treatment Plan ADL Training,Functional Cognition Training,Functional Mobility,Patient/Family Education,Discharge Planning Discharge Recommendations OT Discharge Recommendations Home with Assistance Transportation Needs at Discharge Private Vehicle
--- NOTE | 2021-09-25 09:47 | PT.IPTN ---
Current Diagnoses Spondylolisthesis, lumbar region (09/24/21) Spinal stenosis, lumbosacral region (09/24/21) Surgery Performed Operation Date: 09/24/21 07:45 Actual Procedures p L2-3 TLIF - Justyna Kirby MD Physical Therapy Treatment Note M2 PT-IP Current Condition Start: 09/24/21 17:41 Freq: NEEDED Status: Discharge Protocol: Document 09/24/21 15:40 [facility] (Rec: 09/24/21 17:51 AB [id number]) Physical Therapy Current Condition Current Condition Evaluation Date 09/24/21 Treatment Diagnosis s/p L2-3 TLIF; difficulty in walking Onset Date 09/24/21 M3 PT-IP Subjective Start: 09/24/21 17:41 Freq: NEEDED Status: Discharge Protocol: Document 09/25/21 09:35 [place] (Rec: 09/25/21 12:46 [place] [id number]) Subjective Physical Therapy Visit Type Type Treatment Note Visit Start Time 09:35 Visit Stop Time 09:47 Total Visit Minutes 12 Notes Pts present for caregiver training Number of HEALTH DATA ANALYST Visits 1 Physical Therapy Visit Comments Patient Comments pt is agreeable to do PT M4 PT-IP Mobility and Gait Start: 09/24/21 17:41 Freq: NEEDED Status: Discharge Protocol: Document 09/25/21 09:35 [place] (Rec: 09/25/21 12:46 [place] [id number]) PT-Bed Mobility Assessment Rolling Type of Rolling Log Rolling Level of Assist Standby Assistance Supine to Sit Supine to Sit Standby Assistance Sit to Supine Sit to Supine Standby Assistance Scooting Scooting to Edge of Bed Standby Assistance PT-Transfer Assessment Sit to and From Stand Sit to and from Stand Standby Assistance,1 Person Assistance,Use of Upper Extremities Equipment Transfer Assistive Device Gait Belt,Front Wheeled Walker Orthotic/Prosthetic Devices or Brace: No Transfers Transfer Destination Bed Transfer Technique ambulated w/ FWW Transfer Ability Level of Assist Standby Assistance,Contact Guard Assistance,1 Person Assistance,Use of Upper Extremities Comments Mobility Comments Pt in bed upon arrival and eager for d/c. Spouse present for caregiver training. Pt able to recall 3/3 spinal precautions. SBA for logroll and sidelying<>sit and scooting EOB. Pt sit<>stand w/ FWW SBA and ambulatd ~100 ft to practice stairs. Min cues for upright posture during ambulation. Pt then ascended/ descended 3 steps w/ R rail ascending x2, first w/ this HEALTH DATA ANALYST and second set w/ her - step over step pattern. Pt then ambulted additional 100 ft back to room and left in bed w/ all needs in reach. Gait Assessment Gait Gait Assistance Required: Standby Assistance,Contact Guard Assist,1 Person Assist Distance (Feet) 200 Able to Maintain Weight Bearing Status Yes During Gait Assistive Devices Assistive Device Gait Belt,Front Wheeled Walker Orthotic/Prosthetic Devices or Brace: No Gait Deviations General Gait Pattern Decreased Stride Length, Decreased Feet Clearance,Step- to Gait Factors Limiting Gait Function Factors Limiting Gait Function Decreased Activity Tolerance, Decreased Strength,Difficulty Following Directions,Limited Range of Motion,Pain,Poor Balance,Poor Safety Awareness Comments Gait Comments Please refer to mobility section for details. Stair Climbing Assessment Evaluation Level of Assist On Stairs Standby Assistance,Contact Guard Assistance,1 Person Assistance Devices Stair Climbing Assistive Devices Right Railing Technique/Endurance Stair Climbing Direction Ascend and Descend Stair Climbing Technique Step Over Step Number of Steps Climbed 3 Stair Climbing Set # Repetitions (reps) 2 Comments Stair Climbing Comments Pt ascended/descended 6 total steps w/ R rail ascending and step over step pattern SBA to CGA initially provided by this HEALTH DATA ANALYST and then by pts . Pt states she feels confident to complete steps in home. PT-Balance Assessment Sitting Balance and Reactions Static Sitting Balance Ability Good Dynamic Sitting Balance Ability Good Standing Balance and Reactions Static Standing Balance Ability Good Dynamic Standing Balance Ability Good Device Used FWW M5 PT-IP Objective Assessments Start: 09/24/21 17:41 Freq: NEEDED Status: Discharge Protocol: Document 09/24/21 15:40 [facility] (Rec: 09/24/21 17:51 AB [id number]) Orientation Orientation/Cognition Level of Alertness Lethargic Orientation Name,Place,Situation Language Function Ability No Deficits Noted Safety Awareness Decreased Safety Awareness Memory Description No Deficits Noted Gross Range of Motion Lower Extremity ROM Assessment Within Functional Limits Strength Lower Extremity Strength Assessment Within Functional Limits Coordination Assessment Gross Coordination Gross Coordination WNL Sensation Assessment Sensation Gross Sensation WNL Muscle Tone Muscle Tone WNL Yes M6 PT-IP Treatment Start: 09/24/21 17:41 Freq: NEEDED Status: Discharge Protocol: Document 09/25/21 09:35 [place] (Rec: 09/25/21 12:46 [place] [id number]) Physical Therapy Treatment Education Education Provided Precautions,Weight Bearing Status,Post-Op Packet,Safety M7 PT-IP Assessment and Plan Start: 09/24/21 17:41 Freq: NEEDED Status: Discharge Protocol: Document 09/25/21 09:35 [facility] (Rec: 09/25/21 12:46 [facility] [id number]) PT Summary Assessment and Plan Potential Rehabilitation Potential Good Status of Condition at Evaluation Evolving Summary Impairments Pain,ROM,Strength,Balance, Coordination,Sensation,Tone, Cognition,Bed Mobility, Transfers,Gait,Activity Tolerance Assessment Summary Pt SBA for all bed mobility and transfers and SBA to CGA for ambulation and stairs. Able to ambulate 200 ft and ascend/descend 6 steps. Pt w/ good awareness and adherence to spinal precautions. Completed caregiver training w / pts who was able to provide CGA when needed and will be able to assist pt at home as needed. Pt will benefit from outpatient rehab when appropriate to improve core stability and spinal mobility. Goals Bed Mobility Goal Independent Transfer Goal Independent,Front Wheeled Walker Gait Goal Independent,Front Wheel Walker Gait Distance 200 Other Goals up/down 12 steps R rail ascending SBA Days to Meet Goals 5 Frequency of Treatment Frequency Of Treatment Twice a Day Treatment Plan Physical Therapy Treatment Plan Bed Mobility Training,Transfer Training,Gait Training, Therapeutic Exercise,Balance Retraining,Post Op Education, Discharge Planning,Hot or Cold Pack,Neuromuscular Re-ed, Coordination Retraining,Manual Therapy Precautions Lumbar Precautions Log Roll,No Twisting,Limit Bending,Lifting Restriction of 10 lbs,Gait Belt above Incisional Area Recommendations To Nursing Amount of Assist Needed 1 Person Assist Discharge Recommendations PT Discharge Recommendations Home with Assistance Transportation Needs at Discharge Private Vehicle
--- NOTE | 2021-09-25 10:07 | PC.NURSE ---
I replaced the dressing with coversite. old dressing was peeling off. gave patient extra coversite to take home. eliza intact. no drainage.
--- NOTE | 2021-09-25 11:05 | CM.IDA ---
Initial DCP Assessment Note Pt is a 46 yo female, resident of [place], now POD#1 from spinal surgery by Dr Kirby PCP: Martir Gomez Payer: [facility] Out of [facility] Reviewed chart, pt discussed in multidisciplinary rounds this morning. Therapy has cleared pt for return home w/family to assist and pt has planned for home, DC order from Ortho has already been initiated this morning. No needs expected from DC planning team although will remain available in case this changes today. GERMAN Murillo
== END 2021-09-25 11:05 | disposition home or self-care (01) ==
LOC: OR 06:14 → AC 06:24
PROVIDERS: Physician Assistant; PCP Family Medicine; Referring Provider Orthopaedic Surgery Orthopaedic Surgery of the Spine; Visit Provider Orthopaedic Surgery Orthopaedic Surgery of the Spine
PROC: (CPT 20939; principal; 2021-09-24 07:45)
DX: M43.16 Spondylolisthesis, lumbar region (principal); M48.061 Spinal stenosis, lumbar region without neurogenic claudication; M54.16 Radiculopathy, lumbar region; E03.9 Hypothyroidism, unspecified; J45.909 Unspecified asthma, uncomplicated; F41.9 Anxiety disorder, unspecified
CPT/HCPCS: 20939; 22853; 22633; 22840; 36415; 72100; 76000; 81025; 84703; 97116; 97162; 97165; 97530; 97535; C9290; J0171; J0330; J0690; J1100; J1170; J2250; J2405; J2704; J3010; J3410